=== PATIENT | male | born 1955 | race Caucasian/White ===

== ENCOUNTER → 2019-01-26 | Outpatient (CLI) | payer BC | LOC: COL.RAD 14:06 | DX: Z13.6 Encounter for screening for cardiovascular disorders (principal); M79.661 Pain in right lower leg ==

== ENCOUNTER 2020-12-20 10:34 | Day surgery (SDC) | payer MEDICARE ==
[~2020-12-20] VITALS: Ht 180.3 cm; Wt 81.5 kg
[2020-12-20] MEDS ORDERED: SYNTHROID0.125 MG/T PO (11:01)
[2020-12-20] MEDS ORDERED: LIPITOR 10MG10 MG PO (11:01)
[2020-12-20] MEDS ORDERED: HYZAAR 50-12.1 UDTAB PO (11:01)
[2020-12-20] MEDS ORDERED: ZYLOPRIM 100MG100 MG PO (11:02)
[2020-12-20] MEDS ORDERED: PROTONIX 40MG T40 MG PO (11:02)
[2020-12-20] MEDS ORDERED: SYNTHROID0.137 MG PO (11:02)
[2020-12-20] MEDS ORDERED: ASPIRIN 81M81 MG/TA2 PO (11:03)
[2020-12-20 11:04] VITALS: BP 138/81; PULSE 55; TEMP 97.8
[2020-12-20] MEDS ORDERED: ULTRAM 50MG TAB50 MG PO (13:42)
[2020-12-20 14:25] VITALS: BP 104/65; PULSE 54; TEMP 97
--- NOTE | 2020-12-20 14:25 | NUR ---
The patient arrived back to [facility] from the recovery room at this time. The patient appears alert and oriented and denies any pain or nausea at this time. The patient agrees to try some apple juice at this time. The patient has three lap sites to his abdomen that appear clean, dry and intact and a covered with surgical glue. The patient's is at his bedside at this time. Call light is within reach. Will continue to monitor the patient.
[2020-12-20 14:40] VITALS: BP 107/64; PULSE 50
--- NOTE | 2020-12-20 14:40 | NUR ---
The patient appears to be tolerating the juice well and agrees to try a muffin at this time. Vital ssigns appear stable. Call light remains within reach. Will contiue to monitor the patient.
[2020-12-20 14:55] VITALS: BP 101/49; PULSE 49
--- NOTE | 2020-12-20 14:55 | NUR ---
The patient has finished his muffin and appears to be resting comfortably on the cart at this time. The patient agrees to ambulate to the bathroom with his next vital signs check.
[2020-12-20 15:20] VITALS: BP 100/57; PULSE 48
--- NOTE | 2020-12-20 15:20 | NUR ---
The patient ambulated to the bathroom with the stand by assistance of one nurse and appeared to tolerate the activity well. The patient voided without difficulty and voices a desire to be discharged home.
--- NOTE | 2020-12-20 15:30 | NUR ---
Discharge instructions were reviewed with the patient and his at this time. They all verbalized understanding and have no questions for the nurse at this time. Call light is within reach. Will continue to monitor the patient.
--- NOTE | 2020-12-20 15:40 | NUR ---
The patient was escorted out via wheelchair to a private vehicle by KIMMIE Hawkins. The patient's belongings and discharge paperwork were sent with him. The patient's is present to drive him home.
[2020-12-20 15:41] VITALS: BP 104/65; PULSE 48
== END 2020-12-20 15:40 | disposition home or self-care (01) ==
LOC: SDCO 10:34
DX: K40.90 Unilateral inguinal hernia, without obstruction or gangrene, not specified as recurrent (principal); I10 Essential (primary) hypertension; K21.9 Gastro-esophageal reflux disease without esophagitis; M19.90 Unspecified osteoarthritis, unspecified site; G89.29 Other chronic pain; M54.9 Dorsalgia, unspecified; E03.9 Hypothyroidism, unspecified; E78.00 Pure hypercholesterolemia, unspecified; M10.9 Gout, unspecified; Z20.822 Contact with and (suspected) exposure to COVID-19; Z79.82 Long term (current) use of aspirin; Z79.890 Hormone replacement therapy; Z79.899 Other long term (current) drug therapy; Z90.89 Acquired absence of other organs; Z80.0 Family history of malignant neoplasm of digestive organs; Z83.3 Family history of diabetes mellitus
CPT/HCPCS: C1781; J0690; J1100; J1885; J2405; J2704; J3010; J7120